=== PATIENT | female | born 1950 | race Caucasian/White ===

== ENCOUNTER 2020-09-26 13:12 | Outpatient (CLI) | payer MEDICARE, SELFPAY ==
--- NOTE | 2020-09-26 13:25 | XR_ITS ---
WS: [id number] Left shoulder, 2 views, 09/26/2020 Clinical Data: PAIN IN LEFT SHOULDER Comparison: Left shoulder, 03/27/2014. Findings: No fractures or dislocations are seen. The AC joint is normal. The adjacent left clavicle, left scapu la and ribs are normal. The soft tissues are unremarkable. XR/XR shoulder LT min 2V* [id number] Impression: Negative left shoulder.
--- NOTE | 2020-09-26 13:25 | XR_ITS ---
WS: [id number] Right knee, AP and lateral views, 09/26/2020 Clinical Data: PAIN IN RIGHT KNEE Comparison: Right leg, 03/27/2014. Findings: No fractures or dislocations are seen. The joint spaces are normal. The patella is intact. The soft t issues are unremarkable. XR/XR knee RT 1-2V [id number] Impression: Negative right knee. Kellgren-Saul Classification: grade 0 (none): definite absence of x-ray gregg nges of osteoarthritis
--- NOTE | 2020-09-26 13:25 | XR_ITS ---
WS: [id number] Right shoulder, 2 views, 09/26/2020 Clinical Data: PAIN IN RIGHT SHOULDER Comparison: Right shoulder, 03/27/2014. Findings: No fractures or dislocations are seen. The AC joint is normal. The adjacent right clavicle, right sca pula and ribs are normal. The soft tissues are unremarkable. XR/XR shoulder RT min 2V* [id number] Impression: Negative right shoulder.
--- NOTE | 2020-09-26 13:25 | XR_ITS ---
WS: [id number] Left knee, AP and lateral, 09/26/2020 Clinical Data: CHRONIC PAIN OF LEFT KNEE Comparison: Left leg, 03/27/2014. Findings: No fractures or dislocations are seen. The joint spaces are normal. The patella shows posterior irreg ularity. There is minimal medial and lateral joint space narrowing. The soft tissues are unremarkable . XR/XR knee LT 1-2V [id number] Impression: Minimal osteoarthritis of all 3 joint compartments of the left knee. Kellgren-Saul Classification: grade 2 (minimal): definite osteophytes and p ossible joint space narrowing
== END 2020-09-26 13:13 | disposition home or self-care (01) ==
PROVIDERS: PCP Family Medicine; Visit Provider Nurse Practitioner
DX: M25.512 Pain in left shoulder (principal); M25.562 Pain in left knee; M25.561 Pain in right knee; M25.511 Pain in right shoulder
CPT/HCPCS: 73030; 73560

== ENCOUNTER → 2020-11-06 09:06 | Outpatient (BNVA) | payer MEDICARE, SELFPAY | PROVIDERS: PCP Family Medicine; Visit Provider Podiatrist Foot & Ankle Surgery | DX: M79.671 Pain in right foot (principal) | CPT/HCPCS: 73630 ==

== ENCOUNTER → 2022-09-01 13:07 | Outpatient (BNVA) | payer MEDICARE, SELFPAY | PROVIDERS: PCP Family Medicine; Referring Provider Nurse Practitioner Family; Visit Provider Nurse Practitioner Family | DX: L23.9 Allergic contact dermatitis, unspecified cause (principal); L71.0 Perioral dermatitis; L85.3 Xerosis cutis; L81.4 Other melanin hyperpigmentation; D22.5 Melanocytic nevi of trunk; Z71.89 Other specified counseling | CPT/HCPCS: 99204 ==

== ENCOUNTER → 2022-10-08 10:25 | Outpatient (BNVA) | payer MEDICARE, SELFPAY | PROVIDERS: PCP Nurse Practitioner Family; Visit Provider Nurse Practitioner Family | DX: L23.9 Allergic contact dermatitis, unspecified cause (principal); L71.0 Perioral dermatitis; L85.3 Xerosis cutis | CPT/HCPCS: 99213 ==

== ENCOUNTER → 2023-01-06 10:38 | Outpatient (BNVA) | payer MEDICARE, SELFPAY | PROVIDERS: PCP Nurse Practitioner Family; Visit Provider Nurse Practitioner Family | DX: L71.0 Perioral dermatitis (principal); L85.3 Xerosis cutis; D22.5 Melanocytic nevi of trunk; L57.8 Other skin changes due to chronic exposure to nonionizing radiation | CPT/HCPCS: 99214 ==

== ENCOUNTER → 2023-07-13 12:50 | Outpatient (BNVA) | payer OTHER, SELFPAY | PROVIDERS: PCP Nurse Practitioner Family; Visit Provider Nurse Practitioner Family | DX: L71.0 Perioral dermatitis (principal); L85.3 Xerosis cutis; D22.5 Melanocytic nevi of trunk; L57.8 Other skin changes due to chronic exposure to nonionizing radiation | CPT/HCPCS: 99213 ==

== ENCOUNTER 2023-07-30 18:53 | Emergency (ER) | payer OTHER, SELFPAY ==
[2023-07-30 18:58] VITALS: PULSE 60; RESP 16; TEMP 37.3; O2SAT 99; BMI 33.9
--- NOTE | 2023-07-30 19:08 | XRR_ITS ---
PROCEDURE INFORMATION: Exam: XR Left Ankle Exam date and time: 07/30/2023 7:11 PM Age: 73 years old Clinical indication: Injury or trauma; Fall; Blunt trauma; Patient HX: Missed last step walking down stairs and fell. Large contusion to medial side of left ankle. C/O RT knee and left ankle pain. TECHNIQUE: Imaging protocol: Radiologic exam of the left ankle. Views: 3 or more views. COMPARISON: CR XR knee LT 1-2V [id number] 09/26/2020 1:47 PM FINDINGS: Bones/joints: Bones of the left ankle are moderately demineralized. Mildly displaced distal fibular fracture with mild comminution. No other definitive fractures identified. Tiny curvilinear hyperdensity anterior to the distal tibia, likely chronic though could represent tiny avulsion fracture. Soft tissues: Mild diffuse soft tissue swelling. XR/XR ankle LT min 3V* [id number] IMPRESSION: 1. Mildly displaced distal fibular fracture with mild comminution. 2. Tiny curvilinear hyperdensity anterior to the distal tibia, likely chronic though could represent tiny avulsion fracture.
--- NOTE | 2023-07-30 19:08 | XRR_ITS ---
PROCEDURE INFORMATION: Exam: XR Right Knee Exam date and time: 07/30/2023 7:11 PM Age: 73 years old Clinical indication: Injury or trauma; Fall; Blunt trauma; Right; Patient HX: Missed last step walking down stairs and fell. Large contusion to medial side of left ankle. C/O RT knee and left ankle pain. TECHNIQUE: Imaging protocol: Radiologic exam of the right knee. Views: 3 views. COMPARISON: CR XR knee RT 1-2V [id number] 09/26/2020 1:42 PM FINDINGS: Bones/joints: Bones are demineralized. Alignment is intact. No evidence of acute fracture or dislocation. [id number] tricompartmental degenerative change. No joint effusion. Soft tissues: Normal. XR/XR knee RT 3V* [id number] IMPRESSION: No evidence of acute fracture or dislocation.
--- NOTE | 2023-07-30 19:09 | ED_ITS ---
HPI - Fall General: Chief Complaint: Fall Stated Complaint: FALL Time Seen by Provider: 07/30/23 18:55 Source: patient and EMS Mode of arrival: EMS Limitations: no limitations History of Present Illness: 73-year-old female states that she had m issed the last step of the stairs and fell twisted her left ankle she states she also hit her right knee she has left ankle pain she rates his worst pain at 6 out of 10 she also some right knee pain and some very mild right elbow pain states the elbow pain is minor she is able to move it without any pain currently she denies hitting her head denies any nec k pain denies any hip pain Associated symptoms-after fall: Denies abdominal pain, chest pain, headache(s) or neck pain Review of Systems Const: Denies: fever(s), chills, body aches or change in appetite ENMT: Denies: throat pain or dental pain Card: Denies: chest pain Resp: Denies: dyspnea GI: Denies: abdominal pain, nausea, vomiting or diarrhea Musc: Reports: extremity pain; Denies: neck pain or back pain Skin/Breast: Denies: rash Neuro: Denies: headache(s) PFSH ED PFSH: Social History Smoking and tobacco/nicotine status: never used tobacco/nicotine Second hand smoke exposure: No Alcohol intake: never Substance/Drug Use: never Physical Exam Const: COMMON NORMALS: no acute distress, patient oriented x3 and healthy appearing HENMT: COMMON NORMALS: normocephalic and atraumatic HEAD & SCALP: normocephalic and atraumatic Eye: COMMON NORMALS: conjunctivae normal CONJUNCTIVA: Yes conjunctivae normal Neck/C-Spine: COMMON NORMALS: full ROM and supple CERVICAL SPINE: Yes cervical ROM normal Chest: COMMONS NORMALS: normal inspection of the chest Resp: COMMON NORMALS: normal respiratory effort Extremity: NARRATIVE EXTREMITY EXAM: Tenderness and bruising noted to left ankle she also has tenderness of the right knee her right elbow exam is benign no tenderness she has full range of motion without any pain here. Neuro: COMMON NORMALS: patient oriented x3, moves all extremities and no focal motor deficits Psych: COMMON NORMALS: mental status grossly normal, Normal thought process present and cooperative THOUGHT PROCESS: Normal thought process present Skin: COMMON NORMALS: no rashes or lesions noted and no wounds GENERAL SKIN EXAM: no rashes or lesions noted Course Vital Signs: Vital signs: Vital Signs Temperature 99.1 F 07/30/23 18:58 Pulse Rate 60 07/30/23 19:31 Respiratory Rate 16 07/30/23 19:31 Blood Pressure 194/69 07/30/23 19:31 Pulse Oximetry 97 07/30/23 19:31 Oxygen Delivery Me thod Room Air 07/30/23 18:58 MDM - Fall Medical Decision Making Patient presents here with left distal fibula fracture no other injuries noted did place her splint and crutches we will get her follow-up with podiatry she understands agrees to plan Medical Records I reviewed the patient's medical records. Lab Data Radiology Impressions Ankle X-Ray 07/30/23 19:08 IMPRESSION: 1. Mildly displaced distal fibular fracture with mild comminution. 2. Tiny curvilinear hyperdensity anterior to the distal tibia, likely chronic though could represent tiny avulsion fracture. Knee X-Ray 07/30/23 19:08 IMPRESSION: No evidence of acute fracture or dislocation. All radiology interpretation(s) finalized by discharge Discharge Plan Discharge Patient Disposition: Home Clinical Impression: Closed left fibular fracture Qualifiers: Encounter type: initial encounter Fibula location: distal Fracture morphology: unspecified fracture morphology Qualified Code(s): S82.832A - Other fracture of upper and lower end of left fibula, initial encounter for closed fracture Condition: Stable Prescriptions: New hydrocodone-acetaminophen 5-325 mg tablet 1 tab PO Q6H PRN (Reason: pain) Qty: 14 0RF Discharge Orders: Discharge ED (Routine); Ordered 07/30/23 Ordered By: Taqueria Shrestha Referrals: Ericka Cerda NP [Primary Care Provider] - Mateus Key DPM [Physician] - 4-7 days Discharge Diet: Advance as tolerated Discharge Activity: Resume usual activity Patient Instructions: Ankle Fracture (ED), Opioid Safety Coding Level of Care Code ED Director Of Human Resources for Riccardo Foote
[2023-07-30 19:31] VITALS: BP 194/69; PULSE 60; RESP 16; O2SAT 97
[2023-07-30] MEDS: acetaminophen 500 mg Tablet 1000 MG PO (19:31)
--- NOTE | 2023-08-01 20:33 | DCPLANNER ---
Message sent to Podiatry for follow upon ankle fx
== END 2023-07-30 20:30 | disposition home or self-care (01) ==
PROVIDERS: Emergency Provider Emergency Medicine; PCP Nurse Practitioner Family
DX: S82.832A Other fracture of upper and lower end of left fibula, initial encounter for closed fracture (principal); W10.9XXA Fall (on) (from) unspecified stairs and steps, initial encounter
CPT/HCPCS: 29515; 73562; 73610; 99284; A4590

== ENCOUNTER → 2023-08-02 15:26 | Outpatient (BNVA) | payer OTHER, SELFPAY | PROVIDERS: PCP Nurse Practitioner Family; Visit Provider Podiatrist Foot & Ankle Surgery | DX: S82.832A Other fracture of upper and lower end of left fibula, initial encounter for closed fracture (principal); W10.9XXA Fall (on) (from) unspecified stairs and steps, initial encounter | CPT/HCPCS: 29405; 99204 ==

== ENCOUNTER 2023-08-16 15:25 | Outpatient (CLI) | payer OTHER, SELFPAY | END 2023-08-16 15:26 | disposition home or self-care (01) | LOC: SPT 08-17 10:26 | PROVIDERS: PCP Nurse Practitioner Family; Visit Provider Podiatrist Foot & Ankle Surgery | DX: Z46.89 Encounter for fitting and adjustment of other specified devices (principal); S82.842D Displaced bimalleolar fracture of left lower leg, subsequent encounter for closed fracture with routine healing; S82.832D Other fracture of upper and lower end of left fibula, subsequent encounter for closed fracture with routine healing; X58.XXXD Exposure to other specified factors, subsequent encounter | CPT/HCPCS: L4361 ==

== ENCOUNTER → 2023-08-16 15:27 | Outpatient (BNVA) | payer OTHER, MEDICARE, SELFPAY | PROVIDERS: PCP Nurse Practitioner Family; Visit Provider Podiatrist Foot & Ankle Surgery | DX: S82.842A Displaced bimalleolar fracture of left lower leg, initial encounter for closed fracture; W10.9XXA Fall (on) (from) unspecified stairs and steps, initial encounter | CPT/HCPCS: 73610 ==

== ENCOUNTER 2023-08-20 09:12 | Day surgery (SDC) | payer OTHER, SELFPAY ==
[2023-08-20] VITALS (10 sets, daily range): BP systolic 150–180; BP diastolic 42–79; PULSE 46–70; RESP 12–20; TEMP 36.2–36.4; O2SAT 92–99; BMI 33.0
--- NOTE | 2023-08-20 | XR_ITS ---
WS: [id number] INTRAOPERATIVE TECHNIQUE: 3 Spot fluoroscopic images for intraoperative purposes. FLUOROSCOPY TIME: 40 seconds CLINICAL INFORMATION: TYRONE PICS FINDINGS: Fluoroscopy used for intraoperative purposes. Plate and screw fixation distal fibula lateral malleolu s. Screw fixation across the tibial plafond. XR/XR ankle LT min 3V* [id number] IMPRESSION: Images obtained for intraoperative purposes.
[2023-08-20] MEDS: sodium chloride 0.9% 1,000 ML 30 ML IV (10:07)
--- NOTE | 2023-08-20 10:18 | W.PM.OPSUD ---
Surgery/Procedure H&P Update DATE OF PROCEDURE: August 20, 2023 DATE H&P PERFORMED: 08/16/23 H&P UPDATE INFORMATION: I have reviewed H&P completed within last 30 days, I have examined patient prior to procedure, No changes to prior documentation and [place] [facility] date indicated PREOP DIAGNOSIS: Left bimalleolar fracture. PLANNED PROCEDURE: Operation Date: 08/20/23 10:45 Proposed Procedures p ORIF Ankle ORIF Bimalleolar Fracture(Left) - Mateus Key DPM
--- NOTE | 2023-08-20 10:25 | ANES.PREANE2 ---
Pre-Anesthetic Assessment Height/Weight: Height 1.68 m Weight 92.986 kg Temp Pulse Resp Pulse Ox O2 Del Method 97.2 F L 70 18 98 Room Air 08/20/23 09:33 08/20/23 09:33 08/20/23 09:33 08/20/23 09:33 08/20/23 09:37 Preop Diagnosis: Left bimalleolar fracture. Operation Date: 08/20/23 10:45 Proposed Procedures p ORIF Ankle ORIF Bimalleolar Fracture(Left) - Mateus Key DPM Familial anesthetic complications: None Was Beta Azael taken within 24 hours: N/A Was Clonidine taken within 24 hours: N/A Last intake: Intake Last Liquid Date 08/19/23 Last Liquid Time 22:00 Last Solid Date 08/19/23 Last Solid Time 20:00 Social No alcohol and No tobacco Exam alert, oriented x 3, clear to auscultation bilaterally and regular rate & rhythm Anesthetic Plan ASA status: 1 Anesthesia: General and Regional (specify below) Risk of > 500 ml blood loss (7ml/kg in children): No Medications/Allergies Home Medications Medication Instructions Recorded Confirmed Last Taken Type Cam boot of left #1 ea 08/16/23 08/19/23 Unknown Rx Allergies Allergy/AdvReac Type Severity Reaction Status Date / Time Neuromuscular Blockers, Allergy Mild Hives Verified 08/20/23 09:20 Steroidal Penicillins Allergy Mild Hives Verified 08/20/23 09:20 codeine Allergy rash Verified 08/20/23 09:20 latex Allergy rash Verified 08/20/23 09:20 Current Medications Generic Name Dose Route Start Last Admin Trade Name Artemq PRN Reason Stop Dose Admin Sodium Chloride 1,000 mls @ 30 mls/hr 08/20/23 09:15 08/20/23 10:07 Sodium Chloride 0.9% IV 08/21/23 09:14 30 mls/hr .Q24H MEHNAZ Administration PFSH Anesthesia Social History Smoking and tobacco/nicotine status: never used tobacco/nicotine Second hand smoke exposure: No Alcohol intake: never Substance/Drug Use: never Data Anesthesia Cardiac Studies: No Data to Display
--- NOTE | 2023-08-20 10:26 | ANES.PROC ---
Anesthesia Procedures Procedure/Date: 08/20/23 Nerve Block ^: Nerve Block 1: Main Anesthesia: general anesthesia Time Out Performed: Yes Consent: requested by attending/covering physician, from patient, from other, risks and benefits reviewed and patient agrees to proceed Nerve block location: popliteal (L) Anesthesia monitors applied: pulse oximetry, EKG and BP cuff Nerve block position: supine Anesthetic Used: ropivicaine 0.5% (30 ml) and with decadron (4 mg) Ultrasound used to: recognize landmarks Nerve Stimulator Used?: No Interscalene/Femoral BLK: 4 stimuplex 21 g needle used for position and inplane approach, visualize local anesthetic spread and no vascular puncture identified Injection: neg aspiration of heme Patient Tolerated Procedure: well Complications: none
[2023-08-20] MEDS: clindamycin 600 MG/50 ML PREMIX 100 MG IV (10:38)
[2023-08-20] MEDS: BUPivacaine 0.5% INJ 10 mL INJECTION (10:48)
--- NOTE | 2023-08-20 11:41 | P.BOP_ITS ---
Date of Procedure: 05/28/23 Surgeon: Mateus Key DPM Ventilating Expert(s): Michael Procedure(s) performed: Open reduction internal fixation left bimalleolar fracture. Findings of the procedure(s): Bimalleolar fracture equivalent. Estimated blood loss: 5 mL Specimen(s) removed: No specimens Post-operative diagnosis: Left bimalleolar fracture No complications with anesthesia or surgery, general anesthetic, high calf ankle tourniquet, popliteal block preoperatively per anesthesia left lower extremity.
--- NOTE | 2023-08-20 13:05 | ANE.PACU2 ---
Inpatient post-anesthesia follow up: Airway intact: Yes Vital signs: Temperature 97.4 F Pulse Rate 46 Respiratory Rate 18 Blood Pressure 170/65 Pulse Oximetry 99 Oxygen Delivery Me thod Room Air Oxygen Flow Rate Fraction of Inspir ed Oxygen Hydration adequate: Yes Nausea and vomiting: No Pain level: 1 Mental status: Baseline
--- NOTE | 2023-08-20 14:37 | P.OP_ITS ---
Operative Report Date of procedure: August 24, 2023 Pre-op diagnosis: Diagnosis with ICD10 code: Closed bimalleolar fracture of left ankle, initial encounter S82.842A Post-op diagnosis: Diagnosis with ICD10 code: Closed bimalleolar fracture of left ankle, initial encounter S82.842A Post-op findings: Unstable syndesmosis left ankle Procedure done: Open reduction internal fixation left bimalleolar fracture CPT code 35539 Surgeon: Mateus Kye DPM Brief History: 73 year old diabetic female patient here for evaluation of her left distal fibular fracture. DOI: 07/30/23. Patient states that she fell down a step. Patient examined and evaluated, findings and treatment options were discussed with patient at length. Repeat x-rays left ankle 3 views shows medial gutter widening indicating that the avulsion fracture to medial malleolus is acute and that her left ankle fracture is equivalent to a bimalleolar fracture given the lateral displacement of talus and shortening/rotational deformity of distal fibula I discussed surgical versus nonsurgical options. Leaning towards surgical intervention as a means of rastafarian of anatomy and internal rigid fixation. Patient is agreeable and wishes to proceed will be scheduled outpatient. I reviewed at length with the patient, the risks, potential complications, benefits, alternatives, expectations, and typical outcomes associated with the surgery. The risks and potential complications were explained in detail, including but not limited to infection, wound dehiscence or soft tissue complications, bleeding and hematoma, chronic edema, neuritis or nerve damage producing numbness or chronic pain, CRPS, failure to relieve pain or worsening pain, thick / painful / unsightly scar, limited motion / stiffness, malposition, delayed union, malunion, or nonunion, fracture, reaction to impla nts, anesthetic complications, venous thromboembolism, and deformity recurrence. I discussed the notion of no regrets with the patient as it pertains to complications and outcomes. The patient seemed to understand the nature of the proposed care and required convalescence. They asked appropriate questions, answered to their satisfaction. They are aware no guarantees can be made as to a satisfactory outcome and they understand there may be other possible unforeseen complications or outcomes not listed here that will be treated accordingly if they arise. There were no written or implied guarantees given to the patient. They gave informed consent to proceed.
== END 2023-08-20 13:06 | disposition home or self-care (01) ==
PROVIDERS: PCP Family Medicine; Visit Provider Podiatrist Foot & Ankle Surgery
PROC: (CPT 27814; principal; 2023-08-20 10:35)
DX: S82.842A Displaced bimalleolar fracture of left lower leg, initial encounter for closed fracture (principal); W10.9XXA Fall (on) (from) unspecified stairs and steps, initial encounter; M25.372 Other instability, left ankle
CPT/HCPCS: 27814; 73610; 76000; C1713; J1100; J2405; J2704; J2795; J3010; J3490; J7030

== ENCOUNTER → 2023-09-03 10:50 | Outpatient (BNVA) | payer OTHER, SELFPAY | PROVIDERS: PCP Family Medicine; Visit Provider Podiatrist Foot & Ankle Surgery | DX: Z98.890 Other specified postprocedural states (principal); Z87.81 Personal history of (healed) traumatic fracture | CPT/HCPCS: 73610 ==

== ENCOUNTER → 2023-09-13 10:28 | Outpatient (BNVA) | payer OTHER, SELFPAY | PROVIDERS: PCP Family Medicine; Visit Provider Podiatrist Foot & Ankle Surgery | DX: Z98.890 Other specified postprocedural states; S82.842D Displaced bimalleolar fracture of left lower leg, subsequent encounter for closed fracture with routine healing; X58.XXXD Exposure to other specified factors, subsequent encounter | CPT/HCPCS: 73610; 99024 ==

== ENCOUNTER → 2023-09-30 14:22 | Outpatient (BNVA) | payer OTHER, SELFPAY | PROVIDERS: PCP Family Medicine; Visit Provider Podiatrist Foot & Ankle Surgery | DX: Z98.890 Other specified postprocedural states (principal); S82.842D Displaced bimalleolar fracture of left lower leg, subsequent encounter for closed fracture with routine healing; X58.XXXD Exposure to other specified factors, subsequent encounter | CPT/HCPCS: 73610 ==

== ENCOUNTER 2023-09-30 15:39 | Outpatient (CLI) | payer OTHER, SELFPAY | END 2023-09-30 15:40 | disposition home or self-care (01) | LOC: SPT 15:40 | PROVIDERS: PCP Family Medicine; Visit Provider Podiatrist Foot & Ankle Surgery | DX: Z46.89 Encounter for fitting and adjustment of other specified devices (principal); Z87.81 Personal history of (healed) traumatic fracture | CPT/HCPCS: 97760; L1902 ==

== ENCOUNTER → 2023-10-14 13:16 | Outpatient (BNVA) | payer OTHER, SELFPAY | PROVIDERS: PCP Family Medicine; Visit Provider Nurse Practitioner Family | DX: B35.6 Tinea cruris (principal); D22.5 Melanocytic nevi of trunk; L81.4 Other melanin hyperpigmentation | CPT/HCPCS: 99214 ==

== ENCOUNTER → 2023-10-28 13:03 | Outpatient (BNVA) | payer OTHER, SELFPAY | PROVIDERS: PCP Family Medicine; Visit Provider Podiatrist Foot & Ankle Surgery | DX: Z98.890 Other specified postprocedural states (principal); Z87.81 Personal history of (healed) traumatic fracture | CPT/HCPCS: 73610; 99024 ==

== ENCOUNTER → 2023-11-29 13:04 | Outpatient (BNVA) | payer OTHER, SELFPAY | PROVIDERS: PCP Family Medicine; Visit Provider Nurse Practitioner Family | DX: L71.0 Perioral dermatitis (principal); B35.6 Tinea cruris; D22.5 Melanocytic nevi of trunk | CPT/HCPCS: 99214 ==

== ENCOUNTER → 2023-11-30 15:27 | Outpatient (BNVA) | payer OTHER, SELFPAY | PROVIDERS: PCP Family Medicine; Visit Provider Podiatrist Foot & Ankle Surgery | DX: Z98.890 Other specified postprocedural states (principal); Z87.81 Personal history of (healed) traumatic fracture; M25.572 Pain in left ankle and joints of left foot; T81.41XA Infection following a procedure, superficial incisional surgical site, initial encounter; Y83.8 Other surgical procedures as the cause of abnormal reaction of the patient, or of later complication, without mention of misadventure at the time of the procedure; M25.472 Effusion, left ankle; L03.116 Cellulitis of left lower limb | CPT/HCPCS: 36415; 73610; 80053; 85025; 85651; 86140; 87070; 87075; 87205; 99213 ==

== ENCOUNTER → 2023-12-14 12:45 | Outpatient (BNVA) | payer OTHER, SELFPAY | PROVIDERS: PCP Family Medicine; Visit Provider Podiatrist Foot & Ankle Surgery | DX: Z98.890 Other specified postprocedural states (principal); Z87.81 Personal history of (healed) traumatic fracture; M25.572 Pain in left ankle and joints of left foot; M25.472 Effusion, left ankle; T81.41XA Infection following a procedure, superficial incisional surgical site, initial encounter; L03.116 Cellulitis of left lower limb; T84.84XA Pain due to internal orthopedic prosthetic devices, implants and grafts, initial encounter; Y83.8 Other surgical procedures as the cause of abnormal reaction of the patient, or of later complication, without mention of misadventure at the time of the procedure; Y79.2 Prosthetic and other implants, materials and accessory orthopedic devices associated with adverse incidents | CPT/HCPCS: 99213 ==

== ENCOUNTER 2024-01-06 05:45 | Day surgery (SDC) | payer OTHER, SELFPAY ==
[2024-01-06] VITALS (9 sets, daily range): BP systolic 142–189; BP diastolic 51–95; PULSE 49–60; RESP 16–20; TEMP 36.1–36.2; O2SAT 97–100
[2024-01-06] MEDS: sodium chloride 0.9% 1,000 ML 30 ML IV (06:24)
--- NOTE | 2024-01-06 06:31 | W.PM.OPSUD ---
Surgery/Procedure H&P Update DATE OF PROCEDURE: January 06, 2024 DATE H&P PERFORMED: 12/14/23 H&P UPDATE INFORMATION: I have reviewed H&P completed within last 30 days, I have examined patient prior to procedure, No changes to prior documentation and H&P is in [facility] [place] on date indicated PREOP DIAGNOSIS: Painful hardware left ankle PLANNED PROCEDURE: Operation Date: 01/06/24 07:00 Proposed Procedures p Deep hardware removal left ankle(Left) - Mateus Key DPM
--- NOTE | 2024-01-06 06:53 | ANES.PREANE2 ---
Pre-Anesthetic Assessment Height/Weight: Height 1.68 m Weight 88.451 kg Temp Pulse Resp BP Pulse Ox O2 Del Method 97 F L 60 16 189/95 97 Room Air 01/06/24 06:02 01/06/24 06:02 01/06/24 06:02 01/06/24 06:02 01/06/24 06:02 01/06/24 06:02 Preop Diagnosis: Painful hardware left ankle Operation Date: 01/06/24 07:00 Proposed Procedures p Deep hardware removal left ankle(Left) - Mateus Key DPM Familial anesthetic complications: None Was Beta Azael taken within 24 hours: N/A Was Clonidine taken within 24 hours: N/A Last intake: Intake Last Liquid Date 01/05/24 Last Liquid Time 22:00 Last Solid Date 01/05/24 Last Solid Time 15:00 Social No alcohol and No tobacco Exam alert, oriented x 3, clear to auscultation bilaterally and regular rate & rhythm Airway Mallampati: Class I Dentition: full Anesthetic Plan ASA status: 1 Anesthesia: MAC Risk of > 500 ml blood loss (7ml/kg in children): No Medications/Allergies Home Medications Medication Instructions Recorded Confirmed Last Taken Type Cam boot of left #1 ea 08/16/23 01/06/24 Unknown Rx aso #1 ea 09/30/23 01/06/24 Unknown Rx doxycycline hyclate 100 mg capsule 100 mg PO BID 7 days #14 caps 12/30/23 01/06/24 01/05/24 Rx hydrocodone 10 mg-acetaminophen 1 tab PO Q6H PRN pain 7 days #28 01/06/24 Unknown Rx 325 mg tablet tabs Allergies Allergy/AdvReac Type Severity Reaction Status Date / Time Neuromuscular Blockers, Allergy Mild Hives Verified 01/05/24 10:23 Steroidal Penicillins Allergy Mild Hives Verified 01/05/24 10:23 codeine Allergy rash Verified 01/05/24 10:23 latex Allergy rash Verified 01/05/24 10:23 Current Medications Generic Name Dose Route Start Last Admin Trade Name Freq PRN Reason Stop Dose Admin Sodium Chloride 1,000 mls @ 30 mls/hr 01/06/24 06:00 01/06/24 06:24 Sodium Chloride 0.9% IV 01/07/24 05:59 30 mls/hr .Q24H MEHNAZ Administration PFSH Anesthesia Social History Smoking and tobacco/nicotine status: never used tobacco/nicotine Second hand smoke exposure: No Alcohol intake: never Substance/Drug Use: never Data Anesthesia Cardiac Studies: No Data to Display
[2024-01-06] MEDS: clindamycin 600 MG/50 ML PREMIX 100 MG IV (07:02)
[2024-01-06] MEDS: lidocaine 1% 10 ML INJ 15 ML INJECTION (07:30)
[2024-01-06] MEDS: BUPivacaine 0.5% INJ 30 mL 15 ML INJECTION (07:32)
--- NOTE | 2024-01-06 07:48 | P.OP_ITS ---
Operative Report Date of procedure: January 06, 2024 Pre-op diagnosis: Painful retained hardware left ankle T84.84 XA Post-op diagnosis: Painful retained hardware left ankle T84.84 XA Post-op findings: None Procedure done: Deep hardware removal left ankle. CPT code 29541 Implants: 2-0 Monocryl, 3-0 Monocryl, skin elaine Surgeon: Mateus Key DPM Security System Installer: Tristin Estimated blood loss: 2 mL 19 IV fluids: see intraoperative documentation Urine output: None Complications: none Brief History: 73-year-old female status post ORIF left distal fibula and syndesmosis she believes she has an allergy to the metal implant and pain is experiencing pain that she attributes to hardware would like to have it removed. I reviewed at length with the patient, the risks, potential complications, benefits, alternatives, expectations, and typical outcomes associated with the surgery. The risks and potential complications were explained in detail, including but not limited to infection, wound dehiscence or soft tissue complications, bleeding and hematoma, chronic edema, neuritis or nerve damage producing numbness or chronic pain, CRPS, failure to relieve pain or worsening pain, thick / painful / unsightly scar, limited motion / stiffness, malposition, delayed union, malunion, or nonunion, fracture, reaction to implants, anesthetic complications, venous thromboembolism, and deformity recurrence. I discussed the notion of no regrets with the patient as it pertains to complications and outcomes. The patient seemed to understand the nature of the proposed care and required convalescence. They asked appropriate questions, answered to their satisfaction. They are aware no guarantees can be made as to a satisfactory outcome and they understand there may be other possible unforeseen complications or outcomes not listed here that will be treated accordingly if they arise. There were no written or implied guarantees given to the patient. They gave informed consent to proceed. Procedure: Under mild sedation patient was brought to the operating room and remained on the gurney in supine position. A timeout was performed. Anesthesia was then administered by the anesthesia service. Local anesthesia injected by myself in a proximal V block fashion to the operative site left lateral leg utilizing 30 cc total of one-to-one mixture 1% lidocaine and 0.5 sent Marcaine plain. Well- padded pneumatic tourniquet applied to the left high calf. Left lower extremity was scrubbed, prepped and draped utilizing normal aseptic technique. Left foot and ankle were exanguinated with an Esmarch bandage and the tourniquet inflated to 250 mmHg. Attention was directed the lateral aspect of the left ankle where over the previous cicatrix which was well-healed and new incision was performed through skin with a #15 blade with dissection carried down through subcutaneous tissue to the layer of hardware, total of 8 screws from bone and 1 plate were removed in toto without fragmentation or failure. Fracture site was well-healed. Syndesmosis was intact under stress. Smooth range of motion of the left ankle appreciated intraoperatively. The incision was irrigated with saline solution and closed in a layered fashion with periosteum reapproximated with 2-0 Monocryl, subcutaneous tissue with 3-0 Monocryl and skin with elaine. Incision was dressed with Adaptic, sterile 4 x 4's, Kerlix and Matthias wrap followed by application of a postop shoe. Tourniquet was deflated and a prompt hyperemic response is noted to the distal digits of the left foot. Patient tolerated the procedure and anesthesia well and was transferred to the PACU with vital signs stable and vascular status intact. Following a period of postoperative monitoring she will be discharged home may be weightbearing as tolerated was advised to elevate her left foot while resting. Was given at home care instructions and scheduled follow-up. She declined pain medication states that she is planning on taking Tylenol this is worked in the past for her.
--- NOTE | 2024-01-06 09:10 | ANE.PACU2 ---
Inpatient post-anesthesia follow up: Airway intact: Yes Vital signs: Temperature 97 F Pulse Rate 53 Respiratory Rate 16 Blood Pressure 142/60 Pulse Oximetry 98 Oxygen Delivery Me thod Room Air Oxygen Flow Rate 6 Fraction of Inspir ed Oxygen Hydration adequate: Yes Nausea and vomiting: No Pain level: 1 Mental status: Baseline
== END 2024-01-06 09:10 | disposition home or self-care (01) ==
PROVIDERS: PCP Family Medicine; Visit Provider Podiatrist Foot & Ankle Surgery
PROC: (CPT 20680; principal; 2024-01-06 07:00)
DX: T84.84XA Pain due to internal orthopedic prosthetic devices, implants and grafts, initial encounter (principal); Y82.8 Other medical devices associated with adverse incidents
CPT/HCPCS: 20680; J1100; J2704; J2795; J3010; J3490; J7030

== ENCOUNTER → 2024-01-20 13:52 | Outpatient (BNVA) | payer OTHER, SELFPAY | PROVIDERS: PCP Family Medicine; Visit Provider Podiatrist Foot & Ankle Surgery | DX: Z98.890 Other specified postprocedural states (principal) | CPT/HCPCS: 99024 ==

== ENCOUNTER → 2024-02-23 11:11 | Outpatient (BNVA) | payer OTHER, SELFPAY | PROVIDERS: PCP Family Medicine; Visit Provider Podiatrist Foot & Ankle Surgery | DX: M79.671 Pain in right foot (principal); M25.571 Pain in right ankle and joints of right foot; S86.011D Strain of right Achilles tendon, subsequent encounter; Z98.890 Other specified postprocedural states; X58.XXXD Exposure to other specified factors, subsequent encounter | CPT/HCPCS: 73610; 73620; 99213 ==